=== PATIENT | female | born 1955 | race Caucasian/White ===

== ENCOUNTER → 2016-06-12 | Outpatient (CLI) | payer OTHER | LOC: MAMO 11:10 | DX: R92.2 Inconclusive mammogram (principal); R59.9 Enlarged lymph nodes, unspecified; N64.9 Disorder of breast, unspecified; N63 Unspecified lump in breast; R59.0 Localized enlarged lymph nodes | CPT/HCPCS: 76641-RT; 76881; G0206 ==

== ENCOUNTER → 2016-09-25 | Outpatient (CLI) | payer OTHER | LOC: US 10:24 | DX: R92.8 Other abnormal and inconclusive findings on diagnostic imaging of breast (principal) | CPT/HCPCS: 76641-RT ==